=== PATIENT | male | born 1995 | race Caucasian/White ===

== ENCOUNTER 2022-02-07 07:30 | Outpatient (CLI) | payer OTHER | END 2022-02-07 07:31 | disposition home or self-care (01) | LOC: SCSMRI 07:30 | PROVIDERS: ATTEND Orthopaedic Surgery | DX: M23.91 Unspecified internal derangement of right knee (principal); S83.511A Sprain of anterior cruciate ligament of right knee, initial encounter; S80.01XA Contusion of right knee, initial encounter; R60.0 Localized edema; M94.261 Chondromalacia, right knee ==

== ENCOUNTER 2022-03-06 09:34 | Outpatient (CLI) | payer OTHER ==
[2022-03-06 10:47] LABS: #Eosinphils 0.2 10x3/uL (0.0-0.5); #Monocytes 0.7 10x3/uL (0.0-1.1); #Neutrophils 5.6 10x3/uL (1.5-8.4); %Basophils 0.3 % (0.0-2.0); %Eosinophils 2.5 % (0.0-6.0); %Lymphocytes 24.6 % (18.0-47.0); %Monocytes 7.5 % (0.0-10.0); %Neutrophils 64.8 % (40.0-75.0); Hemoglobin 14.4 g/dL (13.5-17.5); Mean Corpuscular Hemoglobin 25.5 pg (27.0-33.0); Mean Corpuscular Volume 77.5 fl (81.2-95.1); Mean Platelet Volume 10.1 fl (7.4-10.4); Platelet Count 297 10x3/uL (150-450); RBC Distribution Width 13.3 % (11.5-14.5); Red Blood Cell (RBC) Count 5.64 10x6/uL (4.32-5.72); White Blood Cell (WBC) Count 8.6 10x3/uL (3.5-10.5)
[2022-03-06 10:58] LABS: Anion Gap 13 mmol/L (10-20); BUN (Urea Nitrogen) 19 mg/dL (8.9-20.6); Calc. Creatinine Clearance 0 mL/min (70-130); Calcium 10.3 mg/dL (7.8-10.44); Carbon Dioxide 28 mmol/L (22-29); Chloride 104 mmol/L (98-107); Estimated GFR 110; Glucose 89 mg/dL (70-105); Potassium 4.6 mmol/L (3.5-5.1); Sodium 140 mmol/L (136-145)
== END 2022-03-06 09:35 | disposition home or self-care (01) ==
LOC: LABBT 09:34
PROVIDERS: ATTEND Orthopaedic Surgery
DX: Z01.812 Encounter for preprocedural laboratory examination (principal); S83.511A Sprain of anterior cruciate ligament of right knee, initial encounter; Z20.822 Contact with and (suspected) exposure to COVID-19
CPT/HCPCS: 80048; 85025; 87811

== ENCOUNTER 2022-03-09 05:55 | Observation (INO) | payer OTHER ==
[2022-03-07 14:17] VITALS: BMI 29.5
[2022-03-09] MEDS ORDERED: Midazolam HCl 2 mg/2 ml Vial ONE ×2 (06:43→06:52)
[2022-03-09] MEDS ORDERED: fentaNYL Citrate/PF 100 MCG/2 ML SYRINGE ONE (06:44)
[2022-03-09] MEDS ORDERED: Dexmedetomidine 200 MCG/2 ML VIAL ONE (06:44)
[2022-03-09] MEDS ORDERED: Fentanyl 100 MCG/2 ML VIAL ONE ×2 (06:52→10:01)
[2022-03-09] MEDS ORDERED: Ondansetron PF 4 MG/2 ML Vial ONE (07:00)
[2022-03-09] MEDS ORDERED: Lidocaine 1% PF 5 ML VIAL ONE (07:00)
[2022-03-09] MEDS ORDERED: Ropivacaine 0.5% HCl/PF (150 MG/30 ML VIAL) ONE (07:00)
[2022-03-09] MEDS ORDERED: PROPOFOL 200 MG/20 ML VIAL ONE (07:00)
[2022-03-09] MEDS ORDERED: Dexamethasone 20 MG/5 ML VIAL ONE (07:00)
[2022-03-09] MEDS ORDERED: Ketorolac Tromethamine 30 MG/ML VIAL ONE (07:00)
[2022-03-09] MEDS ORDERED: Vancomycin (BATCH) 1.5 GRAM/300 ML BAG ONE (07:02)
[2022-03-09] MEDS ORDERED: Sodium Chloride 0.9% 100 ML ONE (07:15)
[2022-03-09] MEDS ORDERED: CEFAZOLIN 2 GM VIAL ONE (07:15)
[2022-03-09] MEDS ORDERED: HYDROcodone/Acetaminophen 5/325 mg Tablet PO PRN ×2 (08:15)
[2022-03-09] MEDS ORDERED: Ropivacaine 0.2% 550 ML 550 ML NERVE BLCK SCH (08:15)
[2022-03-09] MEDS ORDERED: Zolpidem Tartrate 5 MG TAB PO PRN (08:15)
[2022-03-09] MEDS ORDERED: Ondansetron PF 4 MG/2 ML Vial IVP PRN (08:15)
[2022-03-09] MEDS ORDERED: Promethazine HCl 25 MG/ML VIAL IM PRN ×2 (08:15→09:38)
[2022-03-09] MEDS ORDERED: traMADol HCl 50 MG TAB PO PRN ×2 (08:15)
[2022-03-09] MEDS ORDERED: HYDROcodone/Acetaminophen 7.5/325 mg Tablet PO PRN ×2 (09:13)
[2022-03-09] MEDS ORDERED: Bisacodyl 10 MG SUPP PR PRN (09:13)
[2022-03-09] MEDS ORDERED: Methocarbamol 500 MG TAB PO PRN (09:13)
[2022-03-09] MEDS ORDERED: Acetaminophen 325 MG TAB PO PRN (09:13)
[2022-03-09] MEDS ORDERED: diphenhydrAMINE 50 MG CAP PO PRN (09:13)
[2022-03-09] MEDS ORDERED: Milk Of Magnesia 30 ML UDCUP PO PRN (09:13)
[2022-03-09] MEDS ORDERED: Ondansetron HCl/PF 4 MG/2 ML Vial IVP PRN (09:38)
[2022-03-09] MEDS ORDERED: Promethazine HCl 25 MG/ML VIAL IVPB PRN (09:38)
[2022-03-09] MEDS: Ketorolac Tromethamine 30 MG/ML VIAL IVP SCH ×3 (16:47→23:25)
[2022-03-09] MEDS: Dextrose 5 %-0.45 % NaCl 1,000 ML IV SCH ×2 (16:47→22:23)
[2022-03-09] MEDS: Clindamycin/D5W 900 MG in Premix Bag 1 BAG IVPB SCH ×2 (17:18→21:13)
[2022-03-09] MEDS: Famotidine 20 MG TAB PO SCH (21:13)
[2022-03-10] MEDS: Dextrose 5 %-0.45 % NaCl 1,000 ML IV SCH (04:25)
[2022-03-10] MEDS: Ketorolac Tromethamine 30 MG/ML VIAL IVP SCH ×2 (05:24→14:10)
[2022-03-10 12:06] VITALS: BP 116/66; TEMP 97.7
[2022-03-10] MEDS: Famotidine 20 MG TAB PO SCH (14:10)
== END 2022-03-10 13:45 | disposition home or self-care (01) ==
LOC: SDC 05:55 → SURG B 14:54
PROVIDERS: ADMIT Orthopaedic Surgery; ATTEND Orthopaedic Surgery
PROC: 0MRN47Z Replacement of Right Knee Bursa and Ligament with Autologous Tissue Substitute, Percutaneous Endoscopic Approach (ICD-10-PCS; principal; 2022-03-09)
PROC: 3E0T3BZ Introduction of Anesthetic Agent into Peripheral Nerves and Plexi, Percutaneous Approach (ICD-10-PCS; 2022-03-09)
DX: S83.511A Sprain of anterior cruciate ligament of right knee, initial encounter (principal); M22.41 Chondromalacia patellae, right knee; Z88.1 Allergy status to other antibiotic agents; Z88.2 Allergy status to sulfonamides; X58.XXXA Exposure to other specified factors, initial encounter; Y93.68 Activity, volleyball (beach) (court)
CPT/HCPCS: A4306; C1713; J0690; J1100; J1885; J2250; J2405; J2704; J2795; J3010; J3370; J3490